=== PATIENT | male | born 1980 | race Caucasian/White ===

== ENCOUNTER 2016-07-31 09:12 | Emergency (ER) | payer OTHER ==
[~2016-07-31] VITALS: Ht 188 cm; Wt 198.4 kg
[~2016-07-31 09:12] MED LIST: AZITHROMYCIN250 MG PO; HYDROCODON-ACE1 EAC7 PO; MOTRIN800 MG PO; NAPROSYN500 MG PO; NOHOMEMEDS; PREDNISONE50 MG PO; ULTRAM50 MG PO; VENTOLIN HFA18 GM IH; VICODIN HP 10-1 EACH PO
[2016-07-31] MEDS ORDERED: ZITHROMAX Z-PA250 MG PO (11:20)
[2016-07-31] MEDS ORDERED: ROBITUSSIN AC,T10 ML PO (11:20)
[2016-07-31 11:50] VITALS: BP 138/86
== END 2016-07-31 11:51 | disposition home or self-care (01) ==
LOC: EME 09:12
DX: J20.9 Acute bronchitis, unspecified (principal); E66.9 Obesity, unspecified; Z68.43 Body mass index [BMI] 50.0-59.9, adult; Z87.891 Personal history of nicotine dependence
CPT/HCPCS: 71020; 99281; 99284